=== PATIENT | female | born 1995 | race Asian ===

== ENCOUNTER 2016-11-06 16:53 | Emergency (ER) | payer OTHER ==
[~2016-11-06] VITALS: Ht 165.1 cm; Wt 57.3 kg
[2016-11-06 16:56] VITALS: BP 106/70; PULSE 78; TEMP 36.3; O2SAT 97; Ht 165.1 cm; Wt 57.3 kg
[2016-11-06] MEDS ORDERED: XYLOCAINE 1%/SOD BICARB 20 ML VIAL INFIL STA (17:07)
--- NOTE | 2016-11-06 17:57 | EMERGENCY ROOM VISIT NOTE ---
ED Visit Note First contact with patient: 17:03 Chief Complaint: "Cut finger". History of Present Illness: This patient is a 21-year-old female who presents to the Emergency Department via private vehicle for evaluation of their right fourth digit laceration. Patient sustained the laceration while working earlier today around 2 PM at the [email or web address] at [facility]. They report a minimal amount of bleeding initially. They deny any numbness or tingling into the distal extremity. They report no decreased range of motion of the affected digit. Patient rates her current discomfort as a 1-2/10. Patient's Tetanus status is currently up-to-date. The patient states that the finger was cut on a food tray. Food tray was believed to be clean without any blood. Patient is right-handed. She denies any allergies. Medications: Denies any Allergies: Denies PMH: Skin problems SHx: Patient is a [employer] student. ROS: All pertinent positive and negative review of systems are appropriately documented in the History of Present Illness. Physical Exam: VITAL SIGNS - Vital signs and nursing notes were reviewed. Afebrile, normotensive, non-tachycardic and is saturating well on room air 97%. GENERAL -21-year-old female appearing her stated age who is in no acute distress. Communicates well with provider and answers questions appropriately. SKIN - There is a 1 cm long laceration noted dorsal aspect of the right fourth digit overlying the PIP joint. The edges gape apart with traction. No foreign bodies appreciated. Upon further examination there are no deep structures including vessel, tendon, or bony structures appreciated. There is no active bleeding noted. No bony tenderness. MUSCULOSKELETAL - Laceration as described above. +5/5 strength appreciated of the affected digit. Full range of motion of the affected digit. NEUROLOGIC - Spinothalamic tract was found to be intact with ability to discriminate sharp versus dull sensation. No sensory defects of the dorsal column were appreciated utilizing light touch for evaluation. VASCULAR - Capillary refill was brisk. IMAGING: RIGHT FINGER(S) MIN 2 VIEWS ROUTINE CLINICAL HISTORY: laceration right ring finger (4th) Right trauma COMPARISON: None. DISCUSSION: The bones and joint spaces appear intact. There is no evidence of fracture, dislocation or bony disease. There is no evidence for soft tissue swelling. IMPRESSION: Negative study. Electronically signed by: Marc Buenrostro M.D. 11/06/2016 6:08 PM Dictated Date/Time: 11/06/2016 6:07 PM ED Course: Patient was seen and evaluated by myself. Costs and benefits of performing primary wound closure versus no repair were discussed with the patient who verbalizes understanding. Verbal consent was obtained prior to performing the procedure. 1 cc of 1% buffered lidocaine was used to locally anesthetize the digit. The wound was cleansed and prepped in the typical sterile fashion utilizing normal saline and Betadine. The wound was sterilely draped. Once proper anesthetization was established, the wound was further examined and demonstrated minimal active bleeding. The wound was copiously irrigated with normal saline and Betadine. The wound was closed using 2 simple, 5-0 nylon sutures with the wound edges being well approximated. Radiograph was obtained due to worsening pain in the finger and concern for fracture. Results as above. No acute fracture. Patient tolerated the procedure well. No complications were met. The wound was cleansed and dressed with a Bacitracin dressing. A metal splint was applied to the finger for comfort. Patient is to follow-up with her workman's compensation individual regarding follow-up. Patient educated on worrisome symptoms for return visit to the Emergency Department. Patient discharged to home in good condition. Current/Historical Medications No Active Prescriptions or Reported Meds Allergies Coded Allergies: No Known Allergies (Unverified , 11/06/16) Vital Signs Date Time Temp Pulse Resp B/P Pulse Ox O2 Delivery O2 Flow Rate FiO2 11/06/16 16:56 36.3 78 20 106/70 97 Room Air Medications Administered Medications (Trade) Dose Ordered Sig/Tati Route Start Time Stop Time Status Last Admin Dose Admin Lidocaine HCl (Buffered Lidocaine 1% Inj) 20 ml NOW STAT INFIL 11/06/16 17:07 11/06/16 17:08 DC 11/06/16 17:12 20 ML Departure Information Impression Primary Impression: Laceration of finger Dispostion Home / Self-Care Condition GOOD Prescriptions No Active Prescriptions or Reported Meds Referrals No Doctor, Assigned (PCP) Patient Instructions [facility] Additional Instructions Discharge Instructions: You have received 2 sutures on your right ring finger. These sutures are NOT dissolvable and WILL need to be removed by a health care provider in 12-14 days. You can return to the Emergency Department or contact your Primary Care Provider to have the sutures removed. IF IT WOULD START TO BLEED UNCONTROLLABLY PLEASE RETURN!! Please wear the splint for comfort until the sutures are removed. Proper wound care is essential for adequate wound healing and infection prevention. You can shower and clean the wound with soap and water. Do not scour over the wound, pat dry with a towel. Do not submerse the wound (i.e. bathe or dish wash) until the sutures have been removed. You can use an antibiotic ointment with a dressing over the wound for the next 3-4 days ONLY. After this time you may leave the wound dry and open to the air. If crust develops over the wound you can use a Q-tip to apply a 1:1 peroxide:water solution to clean the wound. Look for signs of infection of the wound including: increased pain, swelling, foul discharge, streaking, or increased temperature. If any of these are noticed you should return to the Emergency Department for further assessment and treatment. As with any laceration you may have received nerve damage to the surrounding tissues. This damage may or may not be permanent. You should keep the area covered with sunscreen for the first 6 months to 1 year when at risk for exposure to help minimize scarring. You can also use scar reducing creams or Vitamin E oil to help minimize scarring. For pain control, you can use the following [id number] medicines (if >12 yo): - Regular strength (325mg/tab) Tylenol (acetaminophen) 2 tabs every 4-6 hours as needed. Do not exceed 12 tablets in a 24 hour period. Avoid taking more than 4 grams (4000 mg) of Tylenol per day. This includes any other sources of acetaminophen you may take on a regular basis. - Regular strength (200 mg/tab) Advil (ibuprofen) 1-2 tabs every 4-6 hours as needed. Do not exceed a dose of 3200 mg per day. Return to the emergency department if your symptoms worsen despite treatment course outlined above. Please call your employer and discuss follow-up with Workmen's Compensation individual. Problem Qualifiers Primary Impression: Laceration of finger Encounter type: initial encounter Qualified Codes: S61.219A - Laceration without foreign body of unspecified finger without damage to nail, initial encounter
--- NOTE | 2016-11-06 18:09 | DIAGNOSTIC IMAGING REPORT ---
RIGHT FINGER(S) MIN 2 VIEWS ROUTINE CLINICAL HISTORY: laceration right ring finger (4th) Right trauma COMPARISON: None. DISCUSSION: The bones and joint spaces appear intact. There is no evidence of fracture, dislocation or bony disease. There is no evidence for soft tissue swelling. IMPRESSION: Negative study. Electronically signed by: Marc Buenrostro M.D. 11/06/2016 6:08 PM Dictated Date/Time: 11/06/2016 6:07 PM
== END 2016-11-06 18:27 | disposition home or self-care (01) ==
LOC: C.EDB 16:57 → C.EDD 18:27
DX: S61.214A Laceration without foreign body of right ring finger without damage to nail, initial encounter (principal); X58.XXXA Exposure to other specified factors, initial encounter